=== PATIENT | female | born 1960 | race Caucasian/White ===

== ENCOUNTER → 2017-04-22 | Day surgery (SDC) | payer OTHER, MEDICARE ==
[~2017-04-22] VITALS: Ht 152.4 cm; Wt 78.5 kg
[~2017-04-22] MED LIST: *morphine SULFATE 8 MG/ML PERIprocedure ONLY ONE; ADDE30TA PO; ALBUAER3 INH; ALLE10TA PO; ALPR1TAB3 PO; AUGM875T3 PO; BACITRACIN TOP OINT 15 GM TUBE ONE; BENA25TA6 PO; BOTU100P I-DERMAL; BUPIVACAINE HCL PF 0.5% 30 ML VIAL ONE; CHLORHEXIDINE GLUCONATE 2 % 1 PACK (2 CLOTHS) TOPICAL PRN; CHOL1CAP34 PO; COLE1TAB2 PO; DEXAMETHASONE SOD PHOS 4 MG/ML VIAL ONE; DEXI60CA2 PO; DO NOT ADM ANY ANTICOAGULANT DRUGS PRN; FAMOTIDINE 20 MG/2 ML VIAL ONE; FENT12DI T-DERMAL; FENT25DI T-DERMAL; HYDR12.57 PO; HYDROmorphone HCL PF 1 MG/ML VIAL IV PRN; IBUP800T23 PO; INSULIN HUMAN REGULAR 1,000 UNITS/10 ML VIAL SQ PRN; JINT1TAB PO; KETOROLAC TROMETHAMINE 60 MG/2 ML (IM) VIAL IM ONE; LACTATED RINGER'S 1000 ML INJ 500 ML IV SCH; LACTATED RINGER'S 1000 ML IV PRN; LACTCAP8 PO; LEVS0.123 PO; LIDOCAINE HCL 1% 50 ML VIAL ONE; LIDOCAINE HCL 2% 50 ML VIAL ONE; MECL12.574 PO; METH2.5T PO; METOPROLOL TARTRATE 25 MG TAB PO PRN; MIDAZOLAM HCL 2 MG/2 ML VIAL ONE; MOME17I EACH NARE; MORP1CAP63 PO; MULT1TAB46 PO; NATU32.5 PO; OMEG100010 PO; ONDANSETRON HCL 4 MG/2 ML VIAL IV PUSH ONE; ONDANSETRON HCL 4 MG/2 ML VIAL IV PUSH PRN; PHENYLEPH/NS 1000 MCG/10 ML SYR IV ONE; POVIDONE IODINE 5% (ANTISEPSIS KIT) 4 APPLICATIONS EACH NARE PRN; PRED5TAB PO; PROPOFOL 200 MG/20 ML AMP IV ONE; ROSU20 PO; SCOPOLAMINE 1.5 MG PATCH ONE; SODIUM CHLOR 0.9% 250 ML INJ 250 ML ONE; SODIUM CHLORID 0.9% 500 ML IV PRN; SOMA350T PO; TEMA30CA PO; TRIAMCINOLONE ACETONIDE 40 MG/ML VIAL ONE; VALA500T PO; VANCOMYCIN HCL 1000 MG VIAL ONE; VITA250T3 PO; VITA500T4 PO; ZETI10TA5 PO; ZOFR8TAB PO; [UNRECOGNIZED DRUG - SUPPLY]; ceFAZolin 1,000 MG/NS 100 ML IV ONE; ceFAZolin INJ 1,000 MG VIAL IV ONE; diphenhydrAMINE HCL 50 MG/ML VIAL ONE
[2017-04-22 12:20] VITALS: BP 112/87; PULSE 105; RESP 20; TEMP 99.1; O2SAT 99
[2017-04-22 16:58] VITALS: BP 121/81; PULSE 98; RESP 16; TEMP 98; O2SAT 96
--- NOTE | 2017-04-22 17:05 | RADRPT ---
EXAM DATE/TIME: 04/22/2017 13:33 [place] COMPARISON: No previous studies available for comparison. INDICATIONS : Hardware removal from right wrist MEDICAL HISTORY : None. SURGICAL HISTORY : Right wrist ORIF ENCOUNTER: Initial ACUITY: 1 day PAIN SCORE: Non-responsive. LOCATION: Bilateral chest FINDINGS: Hardware has been removed from the right wrist. Degenerative changes are evident. With flexion and extension there is no abnormal motion. Fracture does not appear to be healed, however abundant callu s is evident. Final AP and lateral fiberglass reveals anatomic alignment. CONCLUSION: Hardware removal as described above. Anatomic alignment in the AP lateral projection fiberglass.. Bandar Carrington MD FACR on April 22, 2017 at 17:03 on April 22, 2017 at 17: Board Certified Radiologist. This report was verified electronically.
--- NOTE | 2017-04-22 23:33 | MP ---
cc: SYMONE SANTILLAN DATE OF SURGERY 04/22/2017 PREOPERATIVE DIAGNOSIS Retained hardware right wrist. POSTOPERATIVE DIAGNOSIS Retained hardware right wrist. PROCEDURE 1. Removal of hardware, deep right wrist. 2. Placement of DBX bone grafting right wrist. SURGEON Dr. Aroldo Santillan ANESTHESIA General and local TOURNIQUET TIME 56 minutes at 250 mmHg IMPLANTS DBX bone putty. EXPLANTS Synthes distal radius plate and screws. INDICATIONS FOR PROCEDURE Milla Nicholson is a 56-year-old right-hand dominant female, well known to me after she sustained a severely comminuted intra-articular shortened distal radius fracture confirmed by CT scan on 07/19/2016. I performed open reduction internal fixation with a Synthes distal radius plate on 07/20/2016 with near anatomic reduction of the fracture. The patient had a very small distal radius so I used the Synthes narrow distal radius plate and placed the plate slightly distal to capture the fragments. The volar rim plate and dorsal spanning plate were too large for the patients anatomy. The patient progressed well. She did have subsequent carpal tunnel release. I have been following her closely. She is requesting removal of the hardware. I discussed with the patient that I do not routinely remove the hardware until approximately one year if at all, but on CT scan performed at [facility] on 03/11/2017 it showed substantial healing of the fracture with extensor tendinosis and prominence of at least one of the distal screws. The patient is also moving to [facility] next month and is requesting removal of the hardware before she moves. The patient had significant comminution and osteoporosis at the time of the initial fracture and has been using a bone stimulator. She has had slow healing of the fracture due to her significant other medical problems including Crohn's and known osteoporosis. Treatment options were discussed with the patient and again she requested removal of the hardware. Risks were explained but not limited to anesthetic complications, wound complications, infection, persistent pain, refracture, nonunion, malunion, need for additional surgeries, persistent pain, paresthesias and she elected to proceed. DESCRIPTION OF PROCEDURE The patient was identified in the preoperative holding area and the correct extremity was marked. The patient was taken to the operating room where anesthesia was induced. Right upper extremity was prepped and draped in normal sterile fashion. X-rays again confirmed the hardware in place. The prior incision the standard volar approach was utilized. I had prior performed a subcuticular closure. At this time, the patient requested that nylon sutures be placed. The FCR was identified. The flexor pollicis longus was identified and then the plate was identified. None of the screws were loose and there was no evidence of motion at the fracture site prior to removal of the screws. The most prominent distal screw was removed. Again, the patient had requested removal of all of the hardware. All of the screws were removed as well as the plate. Under fluoroscopy, there was a volar prominence of bone overgrowth at the level of the volar rim which was removed as this was close to the carpal tunnel and may be contributing to some of the patient's symptoms. On AP lateral x-rays, the wrist was in near anatomic alignment. It was noted that there was incomplete healing of the fracture. The metaphyseal fracture line was still evident, both by direct visualization and on x-ray. At this time, I called out to the family and discussed that I would like to place a smaller plate as again there was nonunion at the fracture site. The patient's and her sister who is a physician declined the placement of any additional hardware. They understand she is at significant risk for displacement of the fracture, persistent nonunion and need for additional surgeries. Thus, the decision at this time was to place DBX bone graft as well as the bone overgrowth which was removed was placed at the site of the fracture. The tourniquet was released. Hemostasis was obtained. The wound was closed with Monocryl and nylon. The patient was placed into a sugar-tong splint and will understand that she will likely be in a splint or cast for another 3 months or more. She will continue using the bone stimulator. She may require additional surgical intervention, but again declined any additional hardware as she was concerned for tendon irritation. Ten mL of 2% lidocaine with no epinephrine was used to perform local anesthesia. Again x-rays confirmed in the sugar-tong splint showed near anatomic alignment of the fracture. I will see the patient in 2 weeks. At that time she plans to move to [facility] and I will arrange followup with a surgeon in [facility] to Continue to follow the fracture until it completely heals. The patient does have a pain management physician and will obtain pain medication from the physician. MD OUSMANE Schuster/ /10:43 PM /11:17 PM [facility]
== END | disposition home or self-care (01) ==
LOC: HSDC 11:19
PROVIDERS: ATTEND Orthopaedic Surgery
DX: Z47.2 Encounter for removal of internal fixation device (principal); S52.571K Other intraarticular fracture of lower end of right radius, subsequent encounter for closed fracture with nonunion; X58.XXXD Exposure to other specified factors, subsequent encounter; M81.0 Age-related osteoporosis without current pathological fracture; K50.00 Crohn's disease of small intestine without complications; I10 Essential (primary) hypertension; J45.909 Unspecified asthma, uncomplicated; E07.9 Disorder of thyroid, unspecified; M19.90 Unspecified osteoarthritis, unspecified site; M79.7 Fibromyalgia; Z86.73 Personal history of transient ischemic attack (TIA), and cerebral infarction without residual deficits; Z79.1 Long term (current) use of non-steroidal anti-inflammatories (NSAID); Z79.899 Other long term (current) drug therapy
CPT/HCPCS: 01170; 20680; 25405; 73100; 76000; J0690; J1100; J1200; J1885; J2250; J2270; J2370; J2405; J3010; J3370; J7050; J3301